=== PATIENT | male | born 1945 | race Caucasian/White ===

== ENCOUNTER 2021-01-19 09:57 | Emergency (ER) | payer MEDICARE ==
[2021-01-19 10:54] LABS: BASOPHIL 0.1 % (0-2); HCT 36.5 % (42.0-52.0); HGB 11.8 g/dl (13.2-18.0); LYMPHOCYTE 34.5 % (15-48); MCH 27.1 pg (25.0-31.0); MCHC 32.3 g/dL (32.0-36.0); MCV 83.9 fL (78.0-100.0); MONOCYTE 3.2 % (0-12); MPV 10.7 fL (6.0-9.5); NEUTROPHIL 60.7 % (41-80); NRBC 0.1; PLT 152 K/uL (150-400); RBC 4.35 M/uL (4.70-6.00); RDW 15.6 % (11.5-14.0); WBC 14.7 K/uL (4.0-10.5)
[2021-01-19 11:06] LABS: ALBUMIN 3.5 g/dL (3.4-5.0); BILIRUBIN - TOTAL 1.1 mg/dL (0.2-1.0); BUN/CREAT RATIO (CALC) 31.5 RATIO; CREATININE 0.92 mg/dL (0.67-1.17); GLOBULIN (CALCULATION) 3.7 g/dL; POTASSIUM 3.8 mmol/L (3.5-5.1); TOTAL PROTEIN 7.2 g/dL (6.4-8.2)
[2021-01-19 11:10] LABS: PRO-BNP 3117 pg/mL (<125)
[2021-01-19] MEDS ORDERED: KLOR-CON M20 T20 MEQ PO (12:28)
[2021-01-19] MEDS ORDERED: LASIX40 MG PO (12:28)
== END 2021-01-19 12:43 | disposition home or self-care (01) ==
LOC: FER 09:57
PROVIDERS: Emergency Medicine
DX: I11.0 Hypertensive heart disease with heart failure (principal); I50.9 Heart failure, unspecified; E11.9 Type 2 diabetes mellitus without complications; Z79.82 Long term (current) use of aspirin; Z95.1 Presence of aortocoronary bypass graft
CPT/HCPCS: 36415; 36600; 71045; 71275; 80053; 82803; 83880; 84484; 85025; 85379; 93005; J1940; Q9967

== ENCOUNTER 2021-04-03 10:12 | Emergency (ER) | payer MEDICARE ==
[~2021-04-03] VITALS: Ht 170.2 cm; Wt 81.6 kg
[~2021-04-03 10:12] MED LIST: KLOR-CON M20 T20 MEQ PO; LASIX40 MG PO
[2021-04-03 11:28] LABS: ALBUMIN 3.9 g/dL (3.4-5.0); BILIRUBIN - TOTAL 0.7 mg/dL (0.2-1.0); GLOBULIN (CALCULATION) 3.5 g/dL; POTASSIUM 4.1 mmol/L (3.5-5.1); TOTAL PROTEIN 7.4 g/dL (6.4-8.2)
[2021-04-03 11:46] LABS: BASOPHIL 0.1 % (0-2); EOSINOPHIL 1.1 % (0-7); HCT 42.3 % (42.0-52.0); HGB 14.3 g/dl (13.2-18.0); MCH 29.3 pg (25.0-31.0); MCHC 33.8 g/dL (32.0-36.0); MCV 86.7 fL (78.0-100.0); MONOCYTE 2.9 % (0-12); NEUTROPHIL 33.1 % (41-80); NRBC 0; PLT 172 K/uL (150-400); RBC 4.88 M/uL (4.70-6.00); RDW 15.8 % (11.5-14.0); WBC 14.3 K/uL (4.0-10.5)
[2021-04-03 11:47] LABS: LYMPHOCYTE 62.6 % (15-48)
[2021-04-03 12:02] LABS: BILIRUBIN NEGATIVE (NEGATIVE); BLOOD NEGATIVE Ery/uL (NEGATIVE); CLARITY CLEAR (CLEAR); COLOR YELLOW (YELLOW); GLUCOSE (U) NORMAL (NORMAL); LEUKOCYTES NEGATIVE Leu/uL (NEGATIVE); NITRITE NEGATIVE (NEGATIVE); PROTEIN 1+ mg/dL (NEGATIVE); UROBILINOGEN 0.2 mg/dL (0.2-1.0)
[2021-04-03 12:15] LABS: URINARY WBC RARE
[2021-04-03] MEDS ORDERED: NORCO 5-325 TA1 EACH PO (12:38)
== END 2021-04-03 13:05 | disposition home or self-care (01) ==
LOC: FER 10:12
PROVIDERS: Internal Medicine
DX: M54.41 Lumbago with sciatica, right side (principal); E11.65 Type 2 diabetes mellitus with hyperglycemia; I11.0 Hypertensive heart disease with heart failure; I50.9 Heart failure, unspecified
CPT/HCPCS: 36415; 72131; 80053; 81001; 85025

== ENCOUNTER 2022-02-26 13:18 | Emergency (ER) | payer MEDICARE ==
[~2022-02-26 13:18] MED LIST changes: +NORCO 5-325 TA1 EACH PO
[2022-02-26 14:16] LABS: BASOPHIL 0.1 % (0-2); EOSINOPHIL 1.8 % (0-7); HCT 36.3 % (42.0-52.0); HGB 12.7 g/dl (13.2-18.0); MCH 30.8 pg (25.0-31.0); MCV 87.9 fL (78.0-100.0); MONOCYTE 3.5 % (0-12); NEUTROPHIL 27.5 % (41-80); NRBC 0; PLT 180 K/uL (150-400); RBC 4.13 M/uL (4.70-6.00); RDW 13.2 % (11.5-14.0); WBC 13.5 K/uL (4.0-10.5)
[2022-02-26 14:25] LABS: ALBUMIN 3.6 g/dL (3.4-5.0); BILIRUBIN - TOTAL 0.4 mg/dL (0.2-1.0); BUN/CREAT RATIO (CALC) 24.3 RATIO; CREATININE 1.15 mg/dL (0.67-1.17); GLOBULIN (CALCULATION) 3.3 g/dL; POTASSIUM 4.4 mmol/L (3.5-5.1); TOTAL PROTEIN 6.9 g/dL (6.4-8.2); URIC ACID 5.1 mg/dL (3.5-7.2)
[2022-02-26 14:58] LABS: LACTIC ACID 1.4 mmol/L (0.4-1.9)
[2022-02-26] MEDS ORDERED: NAPROSYN500 MG PO (17:24)
== END 2022-02-26 17:27 | disposition home or self-care (01) ==
LOC: FER 13:18
PROVIDERS: Physician Assistant
DX: E11.42 Type 2 diabetes mellitus with diabetic polyneuropathy (principal); I10 Essential (primary) hypertension; Z79.899 Other long term (current) drug therapy; Z79.82 Long term (current) use of aspirin
CPT/HCPCS: 36415; 73630; 80053; 83605; 84550; 85025; J1885